=== PATIENT | male | born 1960 | race Caucasian/White ===

== ENCOUNTER 2018-11-11 10:32 | Day surgery (SDC) | payer OTHER ==
[2018-11-10 11:18] VITALS: BMI 23.5
--- NOTE | 2018-11-11 10:20 | OP ---
Operative Note - Note: Operative Date: 11/11/18 Pre-Operative Diagnosis: Left clavicle fracture Operation: Left clavicle ORIF Post-Operative Diagnosis: Same as Pre-op Surgeon: Otoniel Perez Primary Clinician: Rica Melissa Anesthesiologist/BAG HANGER: Delphine Carney Anesthesia: General Operative Report Dictated: Yes
[2018-11-11] MEDS ORDERED: MIDAZOLAM HCL 2 MG/2 ML SINGLE DOSE VIAL ONE ×2 (11:10→11:22)
[2018-11-11] MEDS ORDERED: PROPOFOL 20 ML ONE (11:10)
[2018-11-11] MEDS ORDERED: DEXAMETHASONE SOD PHOSPHATE/PF 10 MG/ML SDV ONE (11:21)
[2018-11-11] MEDS ORDERED: BUPIVACAINE HCL/PF (5 MG/ML) 30 ML VIAL IJ ONE (11:22)
[2018-11-11] MEDS ORDERED: oxyCODONE HCL 5 MG TABLET PO PRN (12:03)
[2018-11-11] MEDS ORDERED: ONDANSETRON 4 MG/2 ML VIAL IVPUSH PRN (12:03)
[2018-11-11] MEDS ORDERED: LACTATED RINGERS SOLUTION 1,000 ML IV SCH (12:15)
[2018-11-11] MEDS ORDERED: LIDOCAINE 1%/EPI 1:100000 (20 ML MULTI DOSE VIAL) ONE (12:57)
[2018-11-11] MEDS ORDERED: DESFLURANE GAS 240 ML BOTTLE IH ONE (14:31)
[2018-11-11 18:25] VITALS: BP 113/67; PULSE 69; TEMP 98
--- NOTE | 2018-11-12 07:33 | OP ---
DATE OF OPERATION: 11/11/2018 PREOPERATIVE DIAGNOSIS: Left mid-shaft clavicle fracture. POSTOPERATIVE DIAGNOSIS: Left mid-shaft clavicle fracture. PROCEDURE: Left clavicle open reduction, internal fixation. SURGEON: Aurea Camara MD CAR HOSTLER: PRIMITIVO Gaviria, whose skillful assistance was necessary for the safe and timely performance of this procedure. Ms. Melissa was able to help provide limb positioning, retraction, assist in fracture reduction, as well as the insertion of orthopedic fixation hardware while the surgeon as well as pathologist was busy manipulating complex instruments on the back table. IMPLANTS: Caren clavicle shaft plate with 5 times 3.5-mm nonlocking and 1 time 3.5-mm locking screws, one 2.7-mm nonlocking lag screw. POSTOPERATIVE CONDITION: Stable. COMPLICATIONS: None. INDICATIONS: This is a pleasant 57-year-old gentleman who suffered a fall from . He was found to have a mid-shaft displaced clavicle fracture. Treatment options including nonoperative versus operative management were reviewed. Operative risks were reviewed in detail including bleeding, infection, neurovascular injury, need for further surgery, postoperative pain and stiffness, nonunion, malunion, hardware failure, or cutout. We discussed medical risks such as heart attack, stroke, DVT, PE, and . I addressed the use of perioperative antibiotic and DVT prophylaxis. I addressed the use of a sling and postoperative as well as rehabilitation protocol. I reviewed all the patients questions and concerns. He voiced understanding and elected to proceed. DESCRIPTION OF PROCEDURE: Patient was brought to the operating room and placed into the beach-chair position while still awake. He was then given LMA anesthesia. The left upper extremity was prepped and draped in the usual sterile fashion. A preoperative dose of antibiotics was given, and the usual time-out procedure was performed. At this point, an incision was marked out over the clavicle. The area was then injected subcutaneously with 1% lidocaine with epinephrine. Incision was carried down through skin through subcutaneous tissue. Blunt spreading was used to expose the clavipectoral fascia. Fascia was then split in line with the clavicle. This exposed the fracture site. The medial fragment was superiorly elevated. The posterior fragment was posteriorly displaced in the breast. The fracture was debrided of any soft callus. The fracture was noted to have a significant amount of comminution. One of the fragments more anteriorly felt that it could be fixated with lag fixation. A fracture reduction forceps was applied across. A 2.7-mm lag screw was now inserted utilizing standard fashion. The remainder of the fragments were too small to fixate. The fracture was now held manually in reduction even though the remaining fracture pattern was very transverse and unstable. A 7-hole plate was now chosen and contoured to fit the bone. The medial side was fixated now utilizing one 2.7-mm nonlocking screw. This was temporary fixation to maintain the plate in proper alignment. A fracture reduction clamp was then used to reduce the fracture to the plate laterally. The remainder of the holes were now filled with 3.5-mm nonlocking screws except for where the 2.7 screw was. With satisfactory reduction, the 2.7 screw was removed, and then a 3.5-mm locking screw was inserted to maintain fixation in this area. The now was examined visually and fluoroscopically. Both fracture reduction and hardware placement were satisfactory. The wound was copiously irrigated. The fascia was repaired using 0 Vicryl. The subcutaneous tissue was repaired using 3-0 Vicryl. The skin was closed using 3-0 nylon. Sterile dressings were placed. The patient was placed into a sling. He was transferred to the recovery room in stable condition. AUREA CAMARA M.D. [id number]
--- NOTE | 2018-11-12 13:28 | EKG ---
Test Reason : Blood Pressure : / mmHG Vent. Rate : 055 BPM Atrial Rate : 055 BPM P-R Int : 174 ms QRS Dur : 080 ms QT Int : 436 ms P-R-T Axes : 069 071 065 degrees QTc Int : 417 ms SINUS BRADYCARDIA MODERATE VOLTAGE CRITERIA FOR LVH, MAY BE NORMAL VARIANT NO PREVIOUS ECGS AVAILABLE Confirmed by LUH NORIEGA MD ([id number]) on 11/12/2018 1:27:38 PM Referred By: Otoniel Perez Confirmed By:LUH NORIEGA MD
== END 2018-11-11 18:25 | disposition home or self-care (01) ==
LOC: FASU 10:32
PROVIDERS: ATTEND Orthopaedic Surgery Sports Medicine
PROC: 0PSB04Z Reposition Left Clavicle with Internal Fixation Device, Open Approach (ICD-10-PCS; principal; 2018-11-11 12:57)
DX: S42.022A Displaced fracture of shaft of left clavicle, initial encounter for closed fracture (principal); X58.XXXA Exposure to other specified factors, initial encounter; Y93.9 Activity, unspecified; Y92.9 Unspecified place or not applicable
CPT/HCPCS: 73000-TC-LT-FY; 93005; 94760